=== PATIENT | female | born 1935 | race African-American/Black ===

== ENCOUNTER 2018-02-02 11:21 | Inpatient (IN) | payer MEDICARE, OTHER ==
[~2018-02-02] VITALS: Ht 167.6 cm; Wt 125.2 kg
[~2018-02-02 11:21] MED LIST: UNKNOWN MEDS
[2018-02-02] MEDS ORDERED: ASPIRIN 81MG TABLET PO ONE (12:45)
[2018-02-02] MEDS ORDERED: NITROGLYCERIN 0.4MG TABLET SL SL PRN ×2 (12:45→16:30)
[2018-02-02 12:58] LABS: HEMATOCRIT. 33.6 % (36.0-48.0); HEMOGLOBIN. 10.9 g/dL (12.0-16.0); MEAN CORPUSCULAR HEMOGLOBIN 30.8 pg (28.0-32.0); MEAN CORPUSCULAR VOLUME 95.1 fL (81.0-99.0); MEAN PLATELET VOLUME 7.4 fl (7.4-10.4); PLATELET 283 x1000/uL (130-400); RED BLOOD CELL COUNT 3.54 mill/uL (4.2-5.4); RED CELL DISTRIBUTION WIDTH 17.8 % (11.6-14.6)
[2018-02-02 13:09] LABS: CHLORIDE 106 mEq/L (98-107); D-DIMER 0.89 mg/L FEU (<0.50); INR 1.1; PARTIAL THROMBOPLASTIN TIME 27.4 sec (23.4-31.0); PROTHROMBIN TIME 10.7 sec (9.1-11.1)
[2018-02-02 13:33] LABS: PLATELET ESTIMATE NORMAL
[2018-02-02] MEDS ORDERED: IOHEXOL-350 100 ML BOTTLE ONE (15:22)
[2018-02-02] MEDS ORDERED: GUAIFENESIN 200MG/10ML SUGAR FREE UDC PO PRN (16:15)
[2018-02-02] MEDS ORDERED: NA PHOS,M-B/NA PHOS,DI-BA ENEMA 118ML PR PRN (16:15)
[2018-02-02] MEDS ORDERED: CLONIDINE 0.1MG TABLET PO PRN (16:15)
[2018-02-02] MEDS ORDERED: ACETAMINOPHEN 325MG TABLET PO PRN (16:15)
[2018-02-02] MEDS ORDERED: DOCUSATE SODIUM 100MG CAPSULE PO PRN (16:15)
[2018-02-02] MEDS ORDERED: LORAZEPAM 0.5MG TABLET PO PRN (16:15)
[2018-02-02] MEDS ORDERED: MAGNESIUM/ALUMINUM HYDROXIDE/SIMETHICONE 30ML UDC PO PRN (16:15)
[2018-02-02] MEDS ORDERED: ONDANSETRON HCL 4MG/2ML INJ IV PRN (16:15)
[2018-02-02] MEDS ORDERED: IPRATROPIUM/ALBUTEROL 0.5-3(2.5)MG/3ML NEB INH PRN (16:15)
[2018-02-02 16:50] LABS: *AMPHETAMINES SCREEN URINE NEGATIVE (NEGATIVE); *BARBITURATES SCREEN URINE NEGATIVE (NEGATIVE); *BENZODIAZEPINES SCREEN URINE NEGATIVE (NEGATIVE); *COCAINE SCREEN URINE NEGATIVE (NEGATIVE)
[2018-02-02 16:51] LABS: CANNABINOID URINE SCREEN NEGATIVE (NEGATIVE); METHADONE URINE SCREEN NEGATIVE (NEGATIVE); OPIATES URINE SCREEN NEGATIVE (NEGATIVE); PHENCYCLIDINE URINE SCREEN NEGATIVE (NEGATIVE)
[2018-02-02 17:47] LABS: FOLIC ACID (FOLATE) SERUM 18.5 ng/mL (>5.38)
[2018-02-02] MEDS: MORPHINE SULFATE 4 MG/ML CPJ (NOT FOR IM USE) IV PRN (19:12)
[2018-02-02] MEDS: METOPROLOL TARTRATE 25MG TABLET PO SCH (21:00)
[2018-02-02 22:48] VITALS: BP 108/54
[2018-02-02] MEDS: LISINOPRIL 20MG TABLET PO SCH (23:00)
[2018-02-02 23:06] LABS: CREATINE KINASE 106 IU/L (26-192); CREATINE KINASE MB FRACTION 1.7 ng/mL (0.5-3.6)
[2018-02-02] MEDS ORDERED: AMLO5TAB88 PO (23:26)
[2018-02-02] MEDS ORDERED: BACL20TA PO (23:26)
[2018-02-02] MEDS ORDERED: DICL100G16 TP (23:26)
[2018-02-02] MEDS ORDERED: ESOM20CA37 PO (23:26)
[2018-02-02] MEDS ORDERED: FLUT15.88 BOTHNSTRLS (23:26)
[2018-02-02] MEDS ORDERED: DULO60CA63 PO (23:26)
[2018-02-02] MEDS ORDERED: DOCU-150 PO (23:26)
[2018-02-02] MEDS ORDERED: METH2.5T PO (23:37)
[2018-02-02] MEDS ORDERED: HYDR-4001 MT (23:37)
[2018-02-02] MEDS ORDERED: LIDO30CR TP (23:37)
[2018-02-02] MEDS ORDERED: NAPR-681 PO (23:37)
[2018-02-02] MEDS ORDERED: POLY250017 PO (23:37)
[2018-02-02] MEDS ORDERED: POTA-79 PO (23:37)
[2018-02-02] MEDS ORDERED: LOSA100T14 PO (23:37)
[2018-02-02] MEDS ORDERED: PREG75CA PO (23:37)
[2018-02-02] MEDS ORDERED: FURO20TA4 PO (23:37)
[2018-02-02] MEDS ORDERED: MULT-1116 PO (23:37)
[2018-02-02] MEDS ORDERED: TRAZ-212 PO (23:37)
[2018-02-02] MEDS ORDERED: FOLI-43 PO (23:37)
[2018-02-02 23:57] VITALS: BP 135/64
[2018-02-03] MEDS: ASCORBIC ACID 500 MG TABLET PO SCH ×3 (00:04→21:00)
[2018-02-03] MEDS: FAMOTIDINE 20MG TABLET PO SCH ×3 (00:04→22:01)
[2018-02-03] MEDS: LACTULOSE 20G/30ML UDC PO SCH ×3 (00:04→21:00)
[2018-02-03] MEDS: ENOXAPARIN 40MG/0.4ML SYR SUBCUT SCH ×3 (00:06→22:01)
[2018-02-03] MEDS: MORPHINE SULFATE 4 MG/ML CPJ (NOT FOR IM USE) IV PRN ×2 (02:34→08:43)
[2018-02-03 04:51] VITALS: BP 152/63
[2018-02-03 08:00] VITALS: BP 137/64
[2018-02-03 08:09] LABS: CREATINE KINASE 113 IU/L (26-192); CREATINE KINASE MB FRACTION 1.8 ng/mL (0.5-3.6)
[2018-02-03] MEDS: ASPIRIN 325MG EC TABLET PO SCH (08:43)
[2018-02-03] MEDS: LISINOPRIL 20MG TABLET PO SCH ×2 (08:44→21:00)
[2018-02-03] MEDS: ZINC SULFATE 220 MG ( 50 ) CAPSULE PO SCH (08:44)
[2018-02-03] MEDS: METOPROLOL TARTRATE 25MG TABLET PO SCH ×2 (08:44→22:00)
[2018-02-03] MEDS ORDERED: METOLAZONE 10MG TABLET PO SCH (11:00)
[2018-02-03] MEDS: SPIRONOLACTONE 25MG TABLET PO SCH ×2 (11:36→17:45)
[2018-02-03] MEDS: FUROSEMIDE 100MG/10ML VIAL IVP SCH ×2 (11:36→17:43)
[2018-02-03 12:00] VITALS: BP 134/71
[2018-02-03 12:15] LABS: CHLORIDE 105 mEq/L (98-107)
[2018-02-03] MEDS ORDERED: REGADENOSON 0.4 MG/5 ML IV NR (15:00)
[2018-02-03 16:00] VITALS: BP 149/63
[2018-02-03 20:00] VITALS: BP 142/67
[2018-02-03] MEDS: ZOLPIDEM TARTRATE 5MG TABLET PO PRN (22:02)
[2018-02-04] VITALS: BP 149/67
[2018-02-04 06:00] VITALS: BP 154/84
[2018-02-04 08:00] VITALS: BP 132/86
[2018-02-04 08:34] LABS: CHLORIDE 102 mEq/L (98-107)
[2018-02-04] MEDS: METOPROLOL TARTRATE 25MG TABLET PO SCH ×2 (09:00→21:19)
[2018-02-04] MEDS: ASCORBIC ACID 500 MG TABLET PO SCH ×2 (09:00→21:19)
[2018-02-04] MEDS: LISINOPRIL 20MG TABLET PO SCH ×2 (09:00→21:19)
[2018-02-04] MEDS: ASPIRIN 325MG EC TABLET PO SCH (09:00)
[2018-02-04] MEDS: FAMOTIDINE 20MG TABLET PO SCH ×2 (09:00→21:19)
[2018-02-04] MEDS: ZINC SULFATE 220 MG ( 50 ) CAPSULE PO SCH (09:00)
[2018-02-04] MEDS: LACTULOSE 20G/30ML UDC PO SCH ×2 (09:00→21:20)
[2018-02-04] MEDS ORDERED: REGADENOSON 0.4 MG/5 ML IV ONE (09:08)
[2018-02-04] MEDS: ENOXAPARIN 40MG/0.4ML SYR SUBCUT SCH ×2 (11:00→22:05)
[2018-02-04 12:00] VITALS: BP 135/69
[2018-02-04] MEDS: MORPHINE SULFATE 4 MG/ML CPJ (NOT FOR IM USE) IV PRN (15:01)
[2018-02-04 16:00] VITALS: BP 125/78
[2018-02-04] MEDS: SPIRONOLACTONE 25MG TABLET PO SCH (17:50)
[2018-02-04 18:41] LABS: T4 FREE 1.05 ng/dL (0.76-1.46)
[2018-02-04] MEDS: TRAMADOL 50MG TABLET PO PRN (19:42)
[2018-02-04 20:04] VITALS: BP 140/80
[2018-02-04] MEDS: ZOLPIDEM TARTRATE 5MG TABLET PO PRN (22:05)
[2018-02-05] VITALS (7 sets, daily range): BP systolic 113–154; BP diastolic 54–85
[2018-02-05] MEDS: SPIRONOLACTONE 25MG TABLET PO SCH ×2 (06:00→18:00)
[2018-02-05] MEDS: FUROSEMIDE 100MG/10ML VIAL IVP SCH (06:00)
[2018-02-05] MEDS: LACTULOSE 20G/30ML UDC PO SCH ×2 (09:00→20:45)
[2018-02-05] MEDS: ZINC SULFATE 220 MG ( 50 ) CAPSULE PO SCH (09:00)
[2018-02-05] MEDS: FAMOTIDINE 20MG TABLET PO SCH ×2 (09:52→20:45)
[2018-02-05] MEDS: ASCORBIC ACID 500 MG TABLET PO SCH ×2 (09:52→20:45)
[2018-02-05] MEDS: ASPIRIN 325MG EC TABLET PO SCH (09:52)
[2018-02-05] MEDS: METOPROLOL TARTRATE 25MG TABLET PO SCH ×2 (09:53→20:45)
[2018-02-05] MEDS: LISINOPRIL 20MG TABLET PO SCH ×2 (09:53→20:45)
[2018-02-05] MEDS: ENOXAPARIN 40MG/0.4ML SYR SUBCUT SCH ×2 (11:00→22:02)
[2018-02-05] MEDS: FUROSEMIDE 40MG/4ML VIAL IVP SCH (12:38)
[2018-02-05] MEDS: MORPHINE SULFATE 4 MG/ML CPJ (NOT FOR IM USE) IV PRN (17:15)
[2018-02-05] MEDS: ZOLPIDEM TARTRATE 5MG TABLET PO PRN (22:02)
[2018-02-06] VITALS (7 sets, daily range): BP systolic 97–145; BP diastolic 35–69
[2018-02-06] MEDS: SPIRONOLACTONE 25MG TABLET PO SCH (06:00)
[2018-02-06] MEDS: LACTULOSE 20G/30ML UDC PO SCH (09:00)
[2018-02-06] MEDS: ASCORBIC ACID 500 MG TABLET PO SCH (09:05)
[2018-02-06] MEDS: METOPROLOL TARTRATE 25MG TABLET PO SCH (09:05)
[2018-02-06] MEDS: ZINC SULFATE 220 MG ( 50 ) CAPSULE PO SCH (09:05)
[2018-02-06] MEDS: ASPIRIN 325MG EC TABLET PO SCH (09:05)
[2018-02-06] MEDS: FAMOTIDINE 20MG TABLET PO SCH (09:05)
[2018-02-06] MEDS: LISINOPRIL 20MG TABLET PO SCH (09:05)
[2018-02-06] MEDS: FUROSEMIDE 40MG/4ML VIAL IVP SCH (09:16)
[2018-02-06] MEDS ORDERED: POTASSIUM CHLORIDE 20MEQ TABLET SR PO SCH (11:15)
[2018-02-06] MEDS: ENOXAPARIN 40MG/0.4ML SYR SUBCUT SCH (11:32)
[2018-02-06] MEDS: TRAMADOL 50MG TABLET PO PRN (12:03)
[2018-02-06] MEDS ORDERED: POTASSIUM CHLORIDE 20MEQ/PACKET PO NR (13:45)
[2018-02-06] MEDS: MORPHINE SULFATE 4 MG/ML CPJ (NOT FOR IM USE) IV PRN (14:03)
[2018-02-06 17:18] LABS: BASOPHILS % 0.9 % (0.0-2.0); HEMATOCRIT. 39.7 % (36.0-48.0); LYMPHOCYTES % 20.1 % (20.0-50.0); MEAN CORPUSCULAR VOLUME 94.5 fL (81.0-99.0); MEAN PLATELET VOLUME 8.3 fl (7.4-10.4); MONOCYTES % 8.2 % (2.0-8.0); NEUTROPHILS % 68.8 % (40.0-76.0); PLATELET 386 x1000/uL (130-400); RED CELL DISTRIBUTION WIDTH 18.1 % (11.6-14.6)
== END 2018-02-06 17:49 | DRG 552 ==
LOC: ER 13:52 → 6WST 14:39 → EDBEDREQ 14:48 → EDBEDREQTM 14:48 → SUPCPDRO 16:03 → ENRESERV 19:26
PROVIDERS: ADMIT Internal Medicine; ATTEND Internal Medicine
DX: M48.02 Spinal stenosis, cervical region (principal); E44.1 Mild protein-calorie malnutrition; K57.92 Diverticulitis of intestine, part unspecified, without perforation or abscess without bleeding; Z68.41 Body mass index [BMI] 40.0-44.9, adult; K21.9 Gastro-esophageal reflux disease without esophagitis; D64.9 Anemia, unspecified; E66.01 Morbid (severe) obesity due to excess calories; I10 Essential (primary) hypertension; M47.892 Other spondylosis, cervical region; M47.896 Other spondylosis, lumbar region; M79.7 Fibromyalgia; E78.00 Pure hypercholesterolemia, unspecified; R26.9 Unspecified abnormalities of gait and mobility; D63.8 Anemia in other chronic diseases classified elsewhere; G47.33 Obstructive sleep apnea (adult) (pediatric); G89.4 Chronic pain syndrome; K76.89 Other specified diseases of liver; M48.061 Spinal stenosis, lumbar region without neurogenic claudication; Z79.82 Long term (current) use of aspirin; Z90.49 Acquired absence of other specified parts of digestive tract; Z90.710 Acquired absence of both cervix and uterus; Z88.0 Allergy status to penicillin
CPT/HCPCS: 36415; 70551; 71045; 71275; 72141; 72146; 72148; 78452; 80048; 80061; 80305; 82550; 82553; 82607; 82746; 83036; 83540; 83550; 83735; 83880; 84439; 84443; 84481; 84484; 85379; 93005; 93017; 93306; 93970; 96374; 96375; 97162; 97166; 97530; 97535; 99285; A9500; J1650; J1940; J2270; J2405; J2785; Q9967

== ENCOUNTER 2018-02-06 17:50 | Inpatient (IN) | payer MEDICARE, OTHER ==
[~2018-02-06] VITALS: Ht 175.3 cm; Wt 98.0 kg
[~2018-02-06 17:50] MED LIST changes: +AMLO5TAB88 PO; +BACL20TA PO; +DICL100G16 TP; +DOCU-150 PO; +DULO60CA63 PO; +ESOM20CA37 PO; +FLUT15.88 BOTHNSTRLS; +FOLI-43 PO; +FURO20TA4 PO; +HYDR-4001 MT; +LIDO30CR TP; +LOSA100T14 PO; +METH2.5T PO; +MULT-1116 PO; +NAPR-681 PO; +POLY250017 PO; +POTA-79 PO; +PREG75CA PO; +TRAZ-212 PO
[2018-02-06 18:00] VITALS: BP 139/69
[2018-02-06] MEDS ORDERED: ONDANSETRON HCL 4MG/2ML INJ IV PRN (18:45)
[2018-02-06] MEDS ORDERED: IPRATROPIUM/ALBUTEROL 0.5-3(2.5)MG/3ML NEB HHN PRN (18:45)
[2018-02-06] MEDS ORDERED: CLONIDINE 0.1MG TABLET PO PRN (18:45)
[2018-02-06] MEDS ORDERED: NITROGLYCERIN 0.4MG TABLET SL SL PRN (18:45)
[2018-02-06] MEDS ORDERED: ACETAMINOPHEN 325MG TABLET PO PRN (18:45)
[2018-02-06] MEDS ORDERED: NA PHOS,M-B/NA PHOS,DI-BA ENEMA 118ML PR PRN (18:45)
[2018-02-06] MEDS ORDERED: DOCUSATE SODIUM 100MG CAPSULE PO PRN (18:45)
[2018-02-06] MEDS ORDERED: GUAIFENESIN 200MG/10ML SUGAR FREE UDC PO PRN (18:45)
[2018-02-06] MEDS ORDERED: LORAZEPAM 0.5MG TABLET PO PRN (18:45)
[2018-02-06] MEDS ORDERED: TRAMADOL 50MG TABLET PO PRN (18:45)
[2018-02-06] MEDS ORDERED: MORPHINE SULFATE 4 MG/ML CPJ (NOT FOR IM USE) IV PRN (18:45)
[2018-02-06 20:20] VITALS: BP 117/60
[2018-02-06] MEDS ORDERED: ZOLPIDEM TARTRATE 5MG TABLET PO PRN (21:00)
[2018-02-06] MEDS: LACTULOSE 20G/30ML UDC PO SCH (21:00)
[2018-02-06] MEDS: HYDROCODONE/ACETAMINOPHEN 5/325MG TABLET PO PRN (21:19)
[2018-02-06] MEDS: ASCORBIC ACID 500 MG TABLET PO SCH (21:19)
[2018-02-06] MEDS: LISINOPRIL 20MG TABLET PO SCH (21:19)
[2018-02-06] MEDS: ENOXAPARIN 40MG/0.4ML SYR SUBCUT SCH (21:20)
[2018-02-06] MEDS: METOPROLOL TARTRATE 25MG TABLET PO SCH (21:20)
[2018-02-06] MEDS: FAMOTIDINE 20MG TABLET PO SCH (21:20)
[2018-02-07] MEDS: HYDROCODONE/ACETAMINOPHEN 5/325MG TABLET PO PRN (03:19)
[2018-02-07] MEDS: SPIRONOLACTONE 25MG TABLET PO SCH ×2 (06:00→17:02)
[2018-02-07 07:09] LABS: BASOPHILS % 0.8 % (0.0-2.0); EOSINOPHILS % 2.4 % (0.0-5.0); HEMATOCRIT. 37.5 % (36.0-48.0); HEMOGLOBIN. 12.3 g/dL (12.0-16.0); LYMPHOCYTES % 22.3 % (20.0-50.0); MEAN CORPUSCULAR HEMOGLOBIN 31.2 pg (28.0-32.0); MEAN CORPUSCULAR VOLUME 95.3 fL (81.0-99.0); MEAN PLATELET VOLUME 7.8 fl (7.4-10.4); NEUTROPHILS % 63.5 % (40.0-76.0); PLATELET 344 x1000/uL (130-400); RED BLOOD CELL COUNT 3.94 mill/uL (4.2-5.4); RED CELL DISTRIBUTION WIDTH 17.5 % (11.6-14.6)
[2018-02-07 07:40] LABS: CHLORIDE 101 mEq/L (98-107)
[2018-02-07 08:14] VITALS: BP 131/65
[2018-02-07] MEDS: ASCORBIC ACID 500 MG TABLET PO SCH ×2 (08:19→21:43)
[2018-02-07] MEDS: ENOXAPARIN 40MG/0.4ML SYR SUBCUT SCH ×2 (08:19→21:43)
[2018-02-07] MEDS: ZINC SULFATE 220 MG ( 50 ) CAPSULE PO SCH (08:19)
[2018-02-07] MEDS: FAMOTIDINE 20MG TABLET PO SCH ×2 (08:20→21:42)
[2018-02-07] MEDS: LACTULOSE 20G/30ML UDC PO SCH ×2 (08:20→21:42)
[2018-02-07] MEDS: ASPIRIN 325MG EC TABLET PO SCH (08:20)
[2018-02-07] MEDS: LISINOPRIL 20MG TABLET PO SCH ×2 (08:21→21:43)
[2018-02-07] MEDS: METOPROLOL TARTRATE 25MG TABLET PO SCH ×2 (08:22→21:42)
[2018-02-07] MEDS ORDERED: FUROSEMIDE 40MG/4ML VIAL IVP SCH (09:00)
[2018-02-07] MEDS: FUROSEMIDE 40MG TABLET PO SCH (12:01)
[2018-02-07 15:42] LABS: CLARITY URINE CLEAR (CLEAR); COLOR URINE YELLOW (YELLOW); KETONES URINE NEGATIVE (NEGATIVE); LEUKOCYTE ESTERASE URINE NEGATIVE (NEGATIVE); NITRITE URINE POSITIVE (NEGATIVE); OCCULT BLOOD URINE NEGATIVE (NEGATIVE); PROTEIN URINE NEGATIVE (NEGATIVE); SPECIFIC GRAVITY URINE 1.013 (1.005-1.030); UROBILINOGEN URINE 0.2 E.U./dL (0.2-1.0)
[2018-02-07] MEDS: MAGNESIUM/ALUMINUM HYDROXIDE/SIMETHICONE 30ML UDC PO PRN (17:01)
[2018-02-07 20:00] VITALS: BP 118/54
[2018-02-08] MEDS: SPIRONOLACTONE 25MG TABLET PO SCH ×2 (06:11→17:11)
[2018-02-08 07:02] LABS: BASOPHILS % 1.1 % (0.0-2.0); EOSINOPHILS % 2.8 % (0.0-5.0); HEMATOCRIT. 35.8 % (36.0-48.0); HEMOGLOBIN. 11.6 g/dL (12.0-16.0); LYMPHOCYTES % 21.7 % (20.0-50.0); MEAN CORPUSCULAR HEMOGLOBIN 30.8 pg (28.0-32.0); MEAN CORPUSCULAR VOLUME 94.8 fL (81.0-99.0); MEAN PLATELET VOLUME 8.1 fl (7.4-10.4); MONOCYTES % 14.6 % (2.0-8.0); NEUTROPHILS % 59.8 % (40.0-76.0); PLATELET 316 x1000/uL (130-400); RED BLOOD CELL COUNT 3.78 mill/uL (4.2-5.4); RED CELL DISTRIBUTION WIDTH 17.5 % (11.6-14.6)
[2018-02-08 07:07] LABS: CHLORIDE 102 mEq/L (98-107)
[2018-02-08 07:21] LABS: FERRITIN 19 ng/mL (10-291)
[2018-02-08 07:30] LABS: CREATINE KINASE 211 IU/L (26-192); PHOSPHORUS 3.5 mg/dL (2.5-4.9); TOTAL IRON BINDING CAPACITY 317 ug/dL (250-450)
[2018-02-08 07:34] LABS: VITAMIN B12 SERUM 1223 pg/mL (211-911)
[2018-02-08] MEDS: ASPIRIN 325MG EC TABLET PO SCH (08:13)
[2018-02-08] MEDS: ZINC SULFATE 220 MG ( 50 ) CAPSULE PO SCH (08:13)
[2018-02-08] MEDS: FAMOTIDINE 20MG TABLET PO SCH ×2 (08:13→23:12)
[2018-02-08] MEDS: FUROSEMIDE 40MG TABLET PO SCH (08:13)
[2018-02-08] MEDS: ASCORBIC ACID 500 MG TABLET PO SCH ×2 (08:14→23:13)
[2018-02-08] MEDS: ENOXAPARIN 40MG/0.4ML SYR SUBCUT SCH ×2 (08:14→23:23)
[2018-02-08 08:24] VITALS: BP 111/53
[2018-02-08] MEDS: LACTULOSE 20G/30ML UDC PO SCH ×2 (09:00→21:00)
[2018-02-08] MEDS: METOPROLOL TARTRATE 25MG TABLET PO SCH ×2 (09:00→23:13)
[2018-02-08] MEDS: LISINOPRIL 20MG TABLET PO SCH ×2 (09:00→21:00)
[2018-02-08] MEDS: POTASSIUM CHLORIDE 20MEQ TABLET SR PO SCH (10:51)
[2018-02-08] MEDS: MAGNESIUM/ALUMINUM HYDROXIDE/SIMETHICONE 30ML UDC PO PRN (13:20)
[2018-02-08] MEDS: PREGABALIN 25MG CAPSULE PO SCH ×2 (13:25→16:48)
[2018-02-08] MEDS: FERROUS SULFATE 325MG TABLET PO SCH ×2 (13:25→16:49)
[2018-02-08 14:20] VITALS: BP 136/65
[2018-02-08] MEDS: HYDROCODONE/ACETAMINOPHEN 5/325MG TABLET PO PRN (14:30)
[2018-02-08 20:00] VITALS: BP 132/69
[2018-02-09] MEDS: SPIRONOLACTONE 25MG TABLET PO SCH ×2 (06:11→17:06)
[2018-02-09 06:47] LABS: CHLORIDE 102 mEq/L (98-107)
[2018-02-09 08:07] VITALS: BP 110/62
[2018-02-09] MEDS: ENOXAPARIN 40MG/0.4ML SYR SUBCUT SCH ×2 (09:38→21:23)
[2018-02-09] MEDS: LACTULOSE 20G/30ML UDC PO SCH ×2 (09:38→21:19)
[2018-02-09] MEDS: PREGABALIN 25MG CAPSULE PO SCH ×3 (09:38→17:04)
[2018-02-09] MEDS: ZINC SULFATE 220 MG ( 50 ) CAPSULE PO SCH (09:39)
[2018-02-09] MEDS: LISINOPRIL 20MG TABLET PO SCH ×2 (09:39→22:43)
[2018-02-09] MEDS: ASCORBIC ACID 500 MG TABLET PO SCH ×2 (09:39→21:23)
[2018-02-09] MEDS: FUROSEMIDE 40MG TABLET PO SCH (09:39)
[2018-02-09] MEDS: ASPIRIN 325MG EC TABLET PO SCH (09:39)
[2018-02-09] MEDS: FAMOTIDINE 20MG TABLET PO SCH ×2 (09:39→21:23)
[2018-02-09] MEDS: POTASSIUM CHLORIDE 20MEQ TABLET SR PO SCH (09:39)
[2018-02-09] MEDS: FERROUS SULFATE 325MG TABLET PO SCH ×3 (09:39→17:04)
[2018-02-09] MEDS: METOPROLOL TARTRATE 25MG TABLET PO SCH ×2 (09:40→21:19)
[2018-02-09] MEDS: MAGNESIUM/ALUMINUM HYDROXIDE/SIMETHICONE 30ML UDC PO PRN (19:03)
[2018-02-09 20:00] VITALS: BP 131/74
[2018-02-10] VITALS: BP 129/68
[2018-02-10] MEDS: SPIRONOLACTONE 25MG TABLET PO SCH ×2 (06:00→17:47)
[2018-02-10 07:30] VITALS: BP 116/64
[2018-02-10 09:00] VITALS: BP 136/73
[2018-02-10] MEDS: LACTULOSE 20G/30ML UDC PO SCH ×2 (09:00→21:00)
[2018-02-10 09:46] LABS: CLARITY URINE CLOUDY (CLEAR); COLOR URINE YELLOW (YELLOW); KETONES URINE NEGATIVE (NEGATIVE); LEUKOCYTE ESTERASE URINE TRACE (NEGATIVE); NITRITE URINE POSITIVE (NEGATIVE); OCCULT BLOOD URINE NEGATIVE (NEGATIVE); PROTEIN URINE NEGATIVE (NEGATIVE); UROBILINOGEN URINE 0.2 E.U./dL (0.2-1.0)
[2018-02-10] MEDS: ASCORBIC ACID 500 MG TABLET PO SCH ×3 (10:19→21:48)
[2018-02-10] MEDS: FERROUS SULFATE 325MG TABLET PO SCH ×3 (10:19→17:47)
[2018-02-10] MEDS: ASPIRIN 325MG EC TABLET PO SCH (10:19)
[2018-02-10] MEDS: FUROSEMIDE 40MG TABLET PO SCH (10:19)
[2018-02-10] MEDS: METOPROLOL TARTRATE 25MG TABLET PO SCH ×2 (10:20→21:00)
[2018-02-10] MEDS: LISINOPRIL 20MG TABLET PO SCH ×3 (10:20→21:49)
[2018-02-10] MEDS: FAMOTIDINE 20MG TABLET PO SCH ×2 (10:20→21:48)
[2018-02-10] MEDS: PREGABALIN 25MG CAPSULE PO SCH ×3 (10:21→17:46)
[2018-02-10] MEDS: POTASSIUM CHLORIDE 20MEQ TABLET SR PO SCH (10:21)
[2018-02-10] MEDS: ZINC SULFATE 220 MG ( 50 ) CAPSULE PO SCH (10:21)
[2018-02-10] MEDS: ENOXAPARIN 40MG/0.4ML SYR SUBCUT SCH ×2 (10:22→21:50)
[2018-02-10 14:00] VITALS: BP 134/58
[2018-02-10] MEDS: HYDROCODONE/ACETAMINOPHEN 5/325MG TABLET PO PRN (14:06)
[2018-02-10 17:00] VITALS: BP 134/58
[2018-02-10] MEDS ORDERED: ONDANSETRON 4MG ODT PO PRN (19:15)
[2018-02-10 20:00] VITALS: BP 124/59
[2018-02-10] MEDS: MAGNESIUM/ALUMINUM HYDROXIDE/SIMETHICONE 30ML UDC PO PRN (22:07)
[2018-02-11] MEDS: SPIRONOLACTONE 25MG TABLET PO SCH (05:51)
[2018-02-11 06:57] LABS: BASOPHILS % 1.2 % (0.0-2.0); EOSINOPHILS % 1.3 % (0.0-5.0); HEMATOCRIT. 38.1 % (36.0-48.0); HEMOGLOBIN. 12.3 g/dL (12.0-16.0); LYMPHOCYTES % 20.2 % (20.0-50.0); MEAN CORPUSCULAR HEMOGLOBIN 30.6 pg (28.0-32.0); MEAN PLATELET VOLUME 8.1 fl (7.4-10.4); MONOCYTES % 10.4 % (2.0-8.0); NEUTROPHILS % 66.9 % (40.0-76.0); PLATELET 351 x1000/uL (130-400); RED BLOOD CELL COUNT 4.01 mill/uL (4.2-5.4)
[2018-02-11 07:16] LABS: CHLORIDE 101 mEq/L (98-107)
[2018-02-11 07:22] LABS: PHOSPHORUS 3.5 mg/dL (2.5-4.9)
[2018-02-11 08:00] VITALS: BP 112/55
[2018-02-11] MEDS: LACTULOSE 20G/30ML UDC PO SCH (09:00)
[2018-02-11] MEDS: FERROUS SULFATE 325MG TABLET PO SCH ×2 (09:00→12:09)
[2018-02-11] MEDS: POTASSIUM CHLORIDE 20MEQ TABLET SR PO SCH (09:08)
[2018-02-11] MEDS: ASCORBIC ACID 500 MG TABLET PO SCH (09:08)
[2018-02-11] MEDS: ZINC SULFATE 220 MG ( 50 ) CAPSULE PO SCH (09:08)
[2018-02-11] MEDS: FUROSEMIDE 40MG TABLET PO SCH (09:08)
[2018-02-11] MEDS: ENOXAPARIN 40MG/0.4ML SYR SUBCUT SCH (09:08)
[2018-02-11] MEDS: PREGABALIN 25MG CAPSULE PO SCH ×2 (09:08→12:09)
[2018-02-11] MEDS: ASPIRIN 325MG EC TABLET PO SCH (09:08)
[2018-02-11] MEDS: FAMOTIDINE 20MG TABLET PO SCH (09:08)
[2018-02-11] MEDS: METOPROLOL TARTRATE 25MG TABLET PO SCH (09:09)
[2018-02-11] MEDS: LISINOPRIL 20MG TABLET PO SCH (09:09)
[2018-02-11 13:01] VITALS: BP 112/55
[2018-02-11] MEDS ORDERED: ENOXAPARIN 30MG/0.3ML SYR SUBCUT SCH (21:00)
[2018-02-16 17:06] LABS: 25-HYDROXY VITAMIN D3 43 ng/mL (.)
== END 2018-02-11 15:50 | disposition home health service (06) | DRG 552 ==
PROVIDERS: ADMIT Physical Medicine & Rehabilitation Spinal Cord Injury Medicine; ATTEND Internal Medicine
DX: M48.061 Spinal stenosis, lumbar region without neurogenic claudication (principal); E44.1 Mild protein-calorie malnutrition; G82.20 Paraplegia, unspecified; M48.02 Spinal stenosis, cervical region; R26.2 Difficulty in walking, not elsewhere classified; R60.0 Localized edema; D63.8 Anemia in other chronic diseases classified elsewhere; M19.90 Unspecified osteoarthritis, unspecified site; R53.81 Other malaise; G89.4 Chronic pain syndrome; I10 Essential (primary) hypertension; R73.9 Hyperglycemia, unspecified; M77.40 Metatarsalgia, unspecified foot; K21.9 Gastro-esophageal reflux disease without esophagitis; M79.7 Fibromyalgia; E78.00 Pure hypercholesterolemia, unspecified; Z60.2 Problems related to living alone; M47.812 Spondylosis without myelopathy or radiculopathy, cervical region; E66.01 Morbid (severe) obesity due to excess calories; M47.26 Other spondylosis with radiculopathy, lumbar region; Z90.710 Acquired absence of both cervix and uterus; Z90.49 Acquired absence of other specified parts of digestive tract; Z88.0 Allergy status to penicillin; Z79.899 Other long term (current) drug therapy; Z82.49 Family history of ischemic heart disease and other diseases of the circulatory system; Z68.31 Body mass index [BMI] 31.0-31.9, adult
CPT/HCPCS: 36415; 80048; 82306; 82550; 82607; 82728; 83540; 83550; 83735; 84100; 84134; 84443; 84630; 87077; 87186; 92523; 93970; 97110; 97116; 97163; 97167; 97530; 97535; G0515; J1650; J2270; Q0162

== ENCOUNTER 2021-10-27 23:39 | Emergency (ER) | payer BC, MEDICAID, MEDICARE, OTHER ==
[~2021-10-27] VITALS: Ht 172.7 cm; Wt 120.0 kg
[2021-10-28 01:25] VITALS: BP 202/93
== END 2021-10-28 08:00 | disposition left against medical advice (07) ==
LOC: ER 23:39
DX: Z53.21 Procedure and treatment not carried out due to patient leaving prior to being seen by health care provider (principal)
CPT/HCPCS: 93005